=== PATIENT | male | born 1995 | race Caucasian/White ===

== ENCOUNTER 2019-06-12 23:45 | Emergency (ER) | payer MEDICARE, MEDICAID, SELFPAY ==
--- NOTE | 2019-06-13 00:02 | ED_ITS ---
Entered by Haven Jacobsen, acting as scribe for Tito Portillo MD HPI - Extremity Injury (Lower) General: Chief Complaint: Extremity Injury, Lower Stated Complaint: right leg pain Time Seen by Provider: 06/12/19 23:58 Source: patient and family Mode of arrival: ambulatory History of Present Illness: HPI Narrative: 23 y/o male presents to the ED with complaint of pain post fall. Pt was visiting family in [place] and fell down the stairs as he was leaving. Pt hit his right knee. Mom states he has Muscular Dystrophy. MD complaint: fall Onset (ago): minute(s) Injury: Right: knee Type of Injury: blunt Severity: mild Context: fall Review of Systems Const: Denies: fever, chills, body aches or change in appetite Eyes: Denies: blurry vision or eye discomfort ENMT: Denies: throat pain or dental pain Card: Denies: chest pain Resp: Denies: shortness of breath GI: Denies: abdominal pain, nausea, vomiting or diarrhea : Denies: painful urination Musc: Reports: extremity pain (right knee); Denies: neck pain or back pain Skin/Breast: Denies: rash Neuro: Denies: headache Psych: Denies: depression Yordan/Lymph: Denies: easy bruising All/Imm: Denies: hives PFSH ED PFSH: Social History Smoking and tobacco status: current every day smoker Physical Exam Const: COMMON NORMALS: no apparent distress, oriented x3 and healthy appearing GENERAL APPEARANCE: cooperative HENMT: COMMON NORMALS: normocephalic and head/scalp atraumatic HEAD & SCALP: normocephalic and atraumatic Eye: COMMON NORMALS: PERRL and EOMs intact bilaterally PUPIL: Yes PERRL Neck/C-Spine: COMMON NORMALS: full ROM and supple Chest: COMMONS NORMALS: inspection of chest normal and palpation of chest norm al Resp: COMMON NORMALS: normal respiratory effort, no retractions, no use of accessory muscles and clear to auscultation bilaterally AUSCULTATION: clear to auscultation bilaterally Cardio: COMMON NORMALS: regular rate, regular rhythm and no murmurs RATE: regular rate RHYTHM: regular rhythm GI: COMMON NORMALS: normal to inspection, nondistended, normoactive bowel sounds, soft to palpation, non-tender and no masses PALPATION: Yes soft Extremity: RIGHT LOWER EXTREMITY: Yes knee joint Right knee: Yes palpation (tenderness) Neuro: COMMON NORMALS: oriented x3 and no focal motor deficits Psych: COMMON NORMALS: mental status grossly normal, thought process normal and cooperative ATTITUDE: Yes calm THOUGHT PROCESS: normal thought process Skin: COMMON NORMALS: no rashes or lesions noted and no wounds GENERAL SKIN EXAM: no rashes or lesions noted Course Vital Signs: Vital signs: Vital Signs Temperature 97.5 F L 06/13/19 00:04 Pulse Rate 81 06/13/19 00:16 Respiratory Rate 18 06/13/19 00:04 Blood Pressure 154/92 06/13/19 00:04 Pulse Oximetry 96 06/13/19 00:04 MDM - Extremity Injury (Lower) MDM Narrative: Medical decision making narrative: Patient presents here with knee contusion from a fall. X-ray shows no fracture. Patient is stable for discharge and return if worsening. Imaging Data^: xr knee tib fib: Attestation: I personally reviewed and interpreted this imaging study as follows: My impression: no acute fx Discharge Plan Discharge Patient Disposition: Home, Self-Care Clinical Impression: Fall, Contusion of knee Condition: Stable Discharge Orders: Discharge Order (Routine); Ordered 06/13/19 Ordered By: Tito Portillo Referrals: Rafy Szymanski MD [Family Provider] - Tommy Frias Jr, MD [Primary Care Provider] - Discharge Diet: Advance as tolerated Discharge Activity: Resume usual activity Patient Instructions: Contusion in Adults (ED) Discharge Date/Time: 06/13/19 00:51 Coding Level of Care Code ED Airplane Patroller for Chg Fwd Exam Comprehensive The documentation recorded by the Delmar reyes Ashley, accurately reflects the service I personally performed and the decisions made by , Tito Portillo MD
[2019-06-13 00:04] VITALS: BP 154/92; PULSE 104; RESP 18; TEMP 36.4; O2SAT 96; BMI 30.7
--- NOTE | 2019-06-13 00:05 | XR_ITS ---
WS: [id number] XR tibia fibula RT 2V [id number] REASON FOR EXAM: injury FINDINGS: The tibia and fibula appear to be intact. There is no fractures or displacements noted. No unusual soft tissue masses or calcification. The knee and ankle appear to be essentially normal. XR/XR tibia fibula RT 2V [id number] IMPRESSION: Negative tibia fibula study
--- NOTE | 2019-06-13 00:05 | XR_ITS ---
WS: [id number] XR knee RT 3V* [id number] REASON FOR EXAM: injury FINDINGS: The meniscal spaces are normal. The patella tibial interspace normal. The patellofemoral articulations normal. There are no fractures or dislocations of the right knee. No definite unusual swelling. XR/XR knee RT 3V* [id number] IMPRESSION: Negative right knee.
[2019-06-13 00:16] VITALS: PULSE 81
[2019-06-13 00:50] VITALS: BP 132/72; PULSE 68; RESP 18; O2SAT 98
== END 2019-06-13 00:51 | disposition home or self-care (01) ==
PROVIDERS: Emergency Provider Emergency Medicine; Family Provider Family Medicine; PCP Pediatrics Adolescent Medicine
DX: S80.01XA Contusion of right knee, initial encounter (principal); G71.00 Muscular dystrophy, unspecified; W10.9XXA Fall (on) (from) unspecified stairs and steps, initial encounter; Y92.239 Unspecified place in hospital as the place of occurrence of the external cause; F17.200 Nicotine dependence, unspecified, uncomplicated
CPT/HCPCS: 73562; 73590; 99281; 99283

== ENCOUNTER 2022-10-25 19:22 | Emergency (ER) | payer MEDICARE, MEDICAID, SELFPAY ==
[2022-10-25 19:23] VITALS: BP 148/91; PULSE 116; RESP 18; TEMP 36.2; O2SAT 99; BMI 35.9
--- NOTE | 2022-10-25 19:26 | ECG_ITS ---
[facility] Test Date: 2022-10-25 Pat Name: Alexander Durán Department: Room: Gender: Male Events Manager: : 1995 Requested By: Jose Gonzalez Order Number: [id number] Anjel MD: Nia Tavares M.D. Measurements Intervals [place] Rate: 124 P: 55 AL: 168 QRS: 62 QRSD: 103 T: 36 QT: 302 QTc: 434 Interpretive Statements SINUS TACHYCARDIA Compared to ECG 11/13/2014 19:36:31 Sinus rhythm no longer present T-wave abnormality no longer present Electronically Signed On 10-26-2022 11:31:55 CDT by Nia Tavares M.D. [email or web address]/store/[id number] f
--- NOTE | 2022-10-25 19:30 | PC.NURSE ---
pt on bedside case monitor
--- NOTE | 2022-10-25 19:30 | XRR_ITS ---
PROCEDURE INFORMATION: Exam: XR Chest Exam date and time: 10/25/2022 7:37 PM Age: 27 years old Clinical indication: Pain; Chest pressure; Additional info: Chest pain TECHNIQUE: Imaging protocol: Radiologic exam of the chest. Views: 1 view. COMPARISON: No relevant prior studies available. FINDINGS: Lungs: Unremarkable. No consolidation. Pleural spaces: Unremarkable. No pleural effusion. No pneumothorax. Heart/Mediastinum: Unremarkable. No cardiomegaly. Bones/joints: Unremarkable. XR/XR chest 1V portable [id number] IMPRESSION: No acute findings.
--- NOTE | 2022-10-25 19:32 | ED_ITS ---
HPI - Chest Pain General: Chief Complaint: Chest Pain Stated Complaint: cp Time Seen by Provider: 10/25/22 19:26 History of Present Illness: Patient presents to the ER with chest pain. Started about 20 minutes ago. It is on both sides of the chest that is worse when he takes a big deep breath he is tachycardic he appears anxious he denies any diaphoresis nausea vomiting or cardiac history. Nothing makes his pain better but it does hurt when he takes a big deep breath. Patient was taking out the trash when his pain started he describes it as sharp and stabbing across both sides of his chest. He rates it severe patient has had this before several times recently. Review of Systems General: Reports: 10 or more systems reviewed and unremarkable except in HPI and below PFSH ED PFSH: Social History Smoking and tobacco status: current every day smoker Physical Exam Const: COMMON NORMALS: no acute distress, average body habitus, patient oriented x3, no limitations, healthy appearing, alert and well nourished HENMT: COMMON NORMALS: normocephalic, atraumatic, hearing grossly normal bilaterally, external ears normal, Normal external nose present and moist oral mucous membranes HEAD & SCALP: normocephalic and atraumatic NOSE: Normal external nose present EXTERNAL EAR: Yes external ears normal Eye: COMMON NORMALS: Equal, round and reactive pupils present, EOMs intact bilaterally, conjunctivae normal and no scleral icterus CONJUNCTIVA: Yes conjunctivae normal PUPIL: Yes Equal, round and reactive pupils present Neck/C-Spine: COMMON NORMALS: no JVD Chest: OTHER: Chest tender to palpation that reproduces patient's pain. Resp: COMMON NORMALS: normal respiratory effort, No retractions, No use of accessory muscles and clear to auscultation bilaterally AUSCULTATION: clear to auscultation bilaterally Cardio: COMMON NORMALS: no JVD, regular rate, regular rhythm, S1 normal heart sound present, S2 normal heart sound present, No gallops present (Cardio), No clicks present (Cardio), No murmurs present (Cardio) and No rub (Cardio) RATE: regular rate RHYTHM: regular rhythm HEART SOUNDS: S1 normal heart sound present and S2 normal heart sound present GI: COMMON NORMALS: Normal to inspection, nondistended, normoactive bowel sounds present, Soft to palpation, non-tender, No hepatosplenomegaly present and no masses PALPATION: Yes Soft to palpation and Yes No hepatosplenomegaly present : COMMON NORMALS: Yes no CVA tenderness BLADDER/KIDNEY EXAM: Yes no CVA tenderness Back/Pelvis: COMMON NORMALS: no CVA tenderness Neuro: COMMON NORMALS: patient oriented x3 SENSORIUM/ORIENTATION: Yes alert Course Vital Signs: Vital signs: Vital Signs Temperature 97.1 F L 10/25/22 19:23 Pulse Rate 76 10/25/22 22:00 Respiratory Rate 18 10/25/22 19: Blood Pressure 104/82 10/25/22 22:00 Pulse Oximetry 94 10/25/22 22:00 Oxygen Delivery Me thod Room Air 10/25/22 22:00 MDM - Chest Pain Medical Decision Making Patient presented to the ER with chest pain fall and hand pain. Patient was worked up with a normal fashion with also an x-ray of his hand. Work-up was unremarkable other than patient had elevated white count at 18.2 hemoglobin hematocrit of 17.4 and 50.7 and a BUN/creatinine 21 and 1.3. Is felt that this is noncardiac chest pain. Patient will be discharged home. Differential Diagnosis Unlikely acute massive pulmonary embolism, acute respiratory failure, acute myocardial infarction, cardiac arrest or sudden cardiac Medical Records I reviewed the patient's medical records. Lab Data I reviewed the patient's lab results. 10/25/22 19:37 10/25/22 19:37 Radiology Impressions Chest X-Ray 10/25/22 19:30 IMPRESSION: No acute findings. Hand X-Ray 10/25/22 21:34 IMPRESSION: Unremarkable radiographic appearance of the right hand. Laboratory Results WBC 18.2 10^3/uL (4.0-10.0) H 10/25/22 19:37 RBC 5.97 10^6/uL (4.1-5.3) H 10/25/22 19:37 Hgb 17.4 g/dL (11.7-16.6) H 10/25/22 19:37 Hct 50.7 % (42.0-52.0) 10/25/22 19:37 MCV 84.9 fl (80-94) 10/25/22 19:37 MCH 29.1 pg (28.0-34.0) 10/25/22 19:37 MCHC 34.3 g/dL (30.0-36.0) 10/25/22 19:37 RDW 12.7 % (12.1-15.1) 10/25/22 19:37 Plt Count 379 10^3/cmm (130-400) 10/25/22 19:37 MPV 11.0 fL (7.4-10.4) H 10/25/22 19:37 Lymph % (Auto) Not Reportable 10/25/22 19:37 [place] % (Auto) Not Reportable 10/25/22 19:37 Lymph # (Auto) Not Reportable 10/25/22 19:37 [place] # (Auto) Not Reportable 10/25/22 19:37 Total Counted 100 (0-100) 10/25/22 19:37 Atypical Lymphs % 1.0 % (0-5) 10/25/22 19:37 Absolute Neutrophils 9.3 10^3/cmm (1.4-6.5) H 10/25/22 19:37 Segmented Neutrophils 51 % 10/25/22 19:37 Abs Segm Neuts (Man) 9.3 10/cmm (1.6-7.1) H 10/25/22 19:37 Band Neutrophils 0.0 % 10/25/22 19:37 Abs Band Neuts (Man) 0.0 10^3/cmm (0.0-1.2) 10/25/22 19:37 Absolute Lymphocytes 7.1 10^3/cmm (1.2-3.4) H 10/25/22 19:37 Lymphocytes (Manual) 38 % 10/25/22 19:37 Monocytes (Manual) 10.0 % 10/25/22 19:37 Absolute Monocytes 1.8 10^3/cmm (0.1-0.6) H 10/25/22 19:37 Eosinophils (Manual) 0 % 10/25/22 19:37 Absolute Eosinophils 0.0 10^3/cmm (0.0-0.7) 10/25/22 19:37 Basophils (Manual) 0.0 % 10/25/22 19:37 Absolute Basophils 0.0 10^3/cmm (0.0-0.2) 10/25/22 19:37 Metamyelocytes 0.0 % 10/25/22 19:37 Myelocytes 0.0 % 10/25/22 19:37 Platelet Estimate Normal (Normal) 10/25/22 19:37 D-Dimer <= 0.27 ug/mIFEU (0-0.59) 10/25/22 19:37 Sodium 139 mmol/L (136-145) 10/25/22 19:37 Potassium 3.9 mmol/L (3.5-5.1) 10/25/22 19:37 Chloride 102 mmol/L (98-107) 10/25/22 19:37 Carbon Dioxide 16 mmol/L (22-29) L 10/25/22 19:37 Anion Gap 24.9 (5-19) H 10/25/22 19:37 BUN 21 mg/dL (6-20) H 10/25/22 19:37 Creatinine 1.3 mg/dL (0.7-1.2) H 10/25/22 19:37 GFR Calculation 67.3 mL/min (90-130) L 10/25/22 19:37 Glucose 104 mg/dL (65-115) 10/25/22 19:37 Calculated Osmolality 291 mOsm/kg (285-295) 10/25/22 19:37 Calcium 10.0 mg/dL (8.5-10.5) 10/25/22 19:37 Total Bilirubin 1.4 mg/dL (0.15-1.2) H 10/25/22 19:37 AST 65 U/L (0-40) H 10/25/22 19:37 ALT 101 U/L (0-41) H 10/25/22 19:37 Alkaline Phosphatase 129 U/L (40-130) 10/25/22 19:37 Troponin T Baseline 6 ng/L (0-15) 10/25/22 19:37 Troponin T 120 Minute 7.10 ng/L (0-15) 10/25/22 21:19 Delta Troponin T 1.1 ABS# (0-10) 10/25/22 21:19 Total Protein 7.7 g/dL (6.6-8.7) 10/25/22 19:37 Albumin 5.3 g/dL (3.5-5.2) H 10/25/22 19:37 Globulin 2.4 g/dL (1.3-4.6) 10/25/22 19:37 Urine Color Yellow (Yellow) 10/25/22 19:59 Urine Appearance Clear (CLEAR) 10/25/22 19:59 Urine pH 5 (5-7) 10/25/22 19:59 Ur Specific [place] 1.025 (1.005-1.030) 10/25/22 19:59 Urine Protein Neg (Negative) 10/25/22 19:59 Urine Glucose (UA) Norm (Normal) 10/25/22 19:59 Urine Ketones 1+ (Negative) H 10/25/22 19:59 Urine Blood Neg (Negative) 10/25/22 19:59 Urine Nitrate Negative (Negative) 10/25/22 19:59 Urine Bilirubin Neg (Negative) 10/25/22 19:59 Urine Urobilinogen 4 mg/dL (Negative) H 10/25/22 19:59 Ur Leukocyte Esterase Negative (Negative) 10/25/22 19:59 Urine Opiates Screen Negative ng/mL (Negative) 10/25/22 19:59 Ur Barbiturates Screen Negative ng/mL (Negative) 10/25/22 19:59 Ur Phencyclidine Scrn Negative ng/mL (Negative) 10/25/22 19:59 Ur Amphetamines Screen Negative ng/mL (Negative) 10/25/22 19:59 U Benzodiazepines Scrn Positive ng/mL (Negative) H 10/25/22 19:59 Urine Cocaine Screen Negative ng/mL (Negative) 10/25/22 19:59 U Marijuana (THC) Screen Positive ng/mL (Negative) H 10/25/22 19:59 EKG Data EKG 1: I personally reviewed and interpreted this EKG as follows: EKG interpretation date: 10/25/22 EKG interpretation time: 19:26 Prior EKG tracings: not available for review Interpretation: EKG shows ventricular rate 124 beats minute, WI interval 168, QRS duration 103, QTc 375, sinus tach, no ST-T wave changes EKG 2: I personally reviewed and interpreted this EKG as follows: EKG interpretation date: 10/25/22 EKG interpretation time: 21:32 Prior EKG tracings: available for review Interpretation: EKG showed ventricular rate 83 beats minute, WI interval 177, QRS duration 106, QTc of 391, normal sinus rhythm with no ST-T wave changes Discharge Plan Discharge Patient Disposition: Home Clinical Impression: Atypical chest pain, Hand pain, right Condition: Stable Discharge Orders: Discharge ED (Routine); Ordered 10/25/22 Ordered By: Jose Gonzalez Referrals: Rafy Szymanski MD [Physician] - 1 week Tommy Frias Jr, MD [Staff Physician] - Patient Instructions: Noncardiac Chest Pain (ED) Activity Restrictions/Additional Instructions: Your test results show your chest pain was not cardiac in nature. X-rays of your hand were preliminary read as negative. When the radiologist reads them if there is any difference you will be notified. Please follow-up with your primary care practitioner in the next 1 week as you may benefit from further evaluation testing. Coding Level of Care Code ED Telephone Surveyor for Satnam Richardson
[2022-10-25 19:43] LABS: Hematocrit 50.7 % (42.0-52.0); Hemoglobin 17.4 g/dL (11.7-16.6); Mean Corpuscular HGB Conc 34.3 g/dL (30.0-36.0); Mean Corpuscular Hemoglobin 29.1 pg (28.0-34.0); Mean Corpuscular Volume 84.9 fl (80-94); Platelet Count 379 10^3/cmm (130-400); Red Blood Count 5.97 10^6/uL (4.1-5.3); Red Cell Distribution Width 12.7 % (12.1-15.1); White Blood Count 18.2 10^3/uL (4.0-10.0)
[2022-10-25 19:47] LABS: Slide Review Slide Review Perform
[2022-10-25] MEDS: ketorolac 30 mg/mL INJ IVP (19:48)
[2022-10-25] MEDS: sodium chloride 0.9% 1,000 ML 999 ML IV (19:49)
--- NOTE | 2022-10-25 19:49 | PC.NURSE ---
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 Reports he has taken it before and it has helped his chest pain. Also smoked some marijuana two days ago.
[2022-10-25 19:56] LABS: D Dimer <= 0.27 ug/mIFEU (0-0.59)
[2022-10-25 20:00] VITALS: BP 135/85; PULSE 100; O2SAT 96
[2022-10-25 20:00] LABS: Alanine Aminotransferase 101 U/L (0-41); Albumin Level 5.3 g/dL (3.5-5.2); Alkaline Phosphatase 129 U/L (40-130); Anion Gap 24.9 (5-19); Aspartate Amino Transferase 65 U/L (0-40); Blood Urea Nitrogen 21 mg/dL (6-20); Carbon Dioxide 16 mmol/L (22-29); Chloride 102 mmol/L (98-107); Globulin 2.4 g/dL (1.3-4.6); Glomerular Filtration Rate 67.3 mL/min (90-130); Glucose 104 mg/dL (65-115); Osmolality Calculated 291 mOsm/kg (285-295); Potassium 3.9 mmol/L (3.5-5.1); Sodium 139 mmol/L (136-145); Total Bilirubin 1.4 mg/dL (0.15-1.2); Total Protein 7.7 g/dL (6.6-8.7); Troponin(5th) Baseline 6 ng/L (0-15)
[2022-10-25 20:06] LABS: Add Urine Microscopic? NO; Charge for UA Resulting for Rev
[2022-10-25 20:13] LABS: Bilirubin Urine Neg (Negative); Blood Urine Neg (Negative); Glucose Urine UA Norm (Normal); Ketones Urine 1+ (Negative); Leukocyte Esterase Urine Negative (Negative); Nitrate Urine Negative (Negative); Protein Urine Neg (Negative); Specific Gravity, Urine 1.025 (1.005-1.030); Urine Appearance Clear (CLEAR); Urine Color Yellow (Yellow); Urobilinogen Urine 4 mg/dL (Negative); pH Urine 5 (5-7)
[2022-10-25 20:20] LABS: Amphetamines Screen Urine Negative (Negative); Barbiturates Screen Urine Negative (Negative); Benzodiazepines Screen Urine Positive (Negative); Cocaine Screen Urine Negative (Negative); Opiate Screen Urine Negative (Negative); PCP Screen Urine Negative (Negative); THC Screen Urine Positive (Negative)
[2022-10-25 20:22] LABS: Absolute Neutrophil 9.3 10^3/cmm (1.4-6.5); Absolute Segmented Neutrophil 9.3 10/cmm (1.6-7.1); Eosinophils 0 %; Lymphocytes 38 %; Lymphocytes Absolute 7.1 10^3/cmm (1.2-3.4); Monocytes Absolute 1.8 10^3/cmm (0.1-0.6); Platelet Estimate Normal (Normal); Segmented Neutrophils 51 %; Total Cells Counted 100 (0-100)
[2022-10-25 20:30] VITALS: BP 142/94; PULSE 93; O2SAT 92
[2022-10-25 21:00] VITALS: BP 132/90; PULSE 88; O2SAT 93
[2022-10-25 21:30] VITALS: BP 131/86; PULSE 79; O2SAT 98
--- NOTE | 2022-10-25 21:32 | ECG_ITS ---
[facility] Test Date: 2022-10-25 Pat Name: Alexander Durán Department: Room: Gender: Male Youth Liaison Officer: : 1995 Requested By: oJse Gonzalez Order Number: [id number] Hobbs MD: Nia Tavares M.D. Measurements Intervals [place] Rate: 83 P: 38 SD: 177 QRS: 45 QRSD: 106 T: 21 QT: 351 QTc: 414 Interpretive Statements SINUS RHYTHM Compared to ECG 11/13/2014 19:36:31 T-wave abnormality no longer present Electronically Signed On 10-26-2022 11:32:30 CDT by Nia Tavares M.D. [id number]
--- NOTE | 2022-10-25 21:34 | XRR_ITS ---
PROCEDURE INFORMATION: Exam: XR Right Hand Exam date and time: 10/25/2022 9:38 PM Age: 27 years old Clinical indication: Pain; Hand; Right; Additional info: Hand pain TECHNIQUE: Imaging protocol: Radiologic exam of the right hand. Views: 3 or more views. COMPARISON: No relevant prior studies available. FINDINGS: Bones/joints: The alignment of the joints is anatomic and the joint spaces are maintained. There is no evidence of acute fracture. Soft tissues: No radiopaque foreign body is identified. XR/XR hand RT min 3V* [id number] IMPRESSION: Unremarkable radiographic appearance of the right hand.
[2022-10-25 22:00] VITALS: BP 104/82; PULSE 76; O2SAT 94
[2022-10-25 22:04] LABS: Troponin 5 2HR Delta 1.1 ABS# (0-10)
== END 2022-10-25 22:26 | disposition home or self-care (01) ==
PROVIDERS: Emergency Provider Emergency Medicine
DX: R07.89 Other chest pain (principal); M79.641 Pain in right hand
CPT/HCPCS: 36415; 71045; 73130; 80053; 80306; 81003; 84484; 85007; 85025; 85378; 93005; 96361; 96374; 99285; J1885; J7030

== ENCOUNTER → 2024-04-16 12:53 | Outpatient (BNVA) | payer MEDICARE, MEDICAID, SELFPAY | PROVIDERS: PCP Family Medicine; Visit Provider Podiatrist Foot & Ankle Surgery | DX: M79.671 Pain in right foot (principal); M79.672 Pain in left foot; G60.0 Hereditary motor and sensory neuropathy | CPT/HCPCS: 73630; 99203 ==

== ENCOUNTER 2024-11-16 19:29 | Inpatient (IN) | payer OTHER, MEDICAID, SELFPAY ==
--- OUTSIDE RECORDS SUMMARY | 2023-06-03 06:45 | XMS_ITS | Continuity of Care Document ---
Author Organization [facility] Address [id number] [address] Phone Care Team Providers Care Warehouse Loader Name Role Phone Glenn Butler DDS Unavailable Unavailable Allergies, Adverse Reactions, Alerts Substance Reaction Status Criticality No Known Allergies Active No Inform ation Medications Medication Instructions Dosage Effective Dates (start - stop) Status Comments omeprazole 40 mg capsule,delayed release take 1 capsule by oral route every day before a meal 40 MG - Active Procedures Procedure Date Resin-Based Composite Two Surfaces, Posterior Resin-Based Composite Three Surfaces, Posterior Resin-Based Composite One Surface, Anterior Extraction, Erupted Tooth Or Exposed Nyasia t (Elevati Resin-Based Composite One Surface, Posterior Resin-Based Composite Two Surfaces, Posterior Comprehensive Oral Evaluatio n New Or Established Caries Moderate Risk Exempt From Sealant Measure Bitewings Four Films Panoramic Film Intraoral Periapical First Film Intraoral Periapical Each Additional Film Intraoral Periapical Each Additional Film Intraoral Periapical Each Additional Film Extraction, Erupted Tooth Or Exposed Nyasia t (Elevati Intraoral Periapical First Film Intraoral Periapical Each Additional Film Limited Oral Evaluation Problem Focused Extraction, Erupted Tooth Or Exposed Nyasia t (Elevati Advance Directives Directive Yes / No Effective Date File Name No Information Encounters Encounter Description Practice Location Reason(s) For Visit Diagnoses Date Provider Providers Copied on Encounter [facility], [id number] [place], [id number], [place] tel:[phone] [facility] Encounter for dental exam and cleaning w/o abnormal findings Luke Elizabeth. [address] [place], [address], [place]. tel:[phone] Referring Provider: Glenn Saunders, [address] [place], [address]. tel:[phone] [facility], [id number], [id number], [place] tel:[phone] [facility] Encounter for dental exam and cleaning w/o abnormal findings Luke Elizabeth. [address] [place], [address], [place]. tel:[phone] Referring Provider: lGenn Saunders, [address] [place], [address]. tel:[phone] [facility], [id number], [id number], [place] tel:[phone] [facility] Encounter for dental exam and cleaning w/o abnormal findings Luke Elizabeth. [address] [place], [address], [place]. [phone] Referring Provider: Glenn Saunders, [address] [place], [address]. tel:[phone] [facility], [id number] [facility], [place], [place], [id number], [place] tel:[phone] [facility] No Information [facility]. [address] [place] [address], [address], [place]. tel:[phone] Referring Provider: Yoel Guillermo, [address] [place] [address], [address]. tel:[phone] Family History Family Member Type Diagnosis Age At Onset Father Problem (finding) Payers Payer name Insurance type Covered republican ID Authorwilber rader(s) D Medicaid [id number] Social History Type Description Quantity Date Captured Comments Alcohol Use Details Caffeine Use Details Unknown Tobacco Use Status Smoking Status No Information Sex Male Sexual Orientation Heterosexual Gender Identity Male Chief Complaint And Reason For Visit No Information Reason For Referral Reason For Referral No Information Plan Of Treatment Date Type Action Status Goal Tobacco cessation counseling completed History Of Present Illness Encounter Date Complaint History Of Prese nt Illness No Information Functional Status Date Functional Assessmen t No Information Instructions Date Instruction Additional Infor lucie Lifestyle education Related to D ental Examination Lifestyle education Related to D ental Examination Lifestyle education Related to D ental Examination Assessments Type Assessment Date No Information Patient Care Teams Name Effective Dates (start - stop) Status Members No Information
[2024-11-16 19:24] VITALS: BP 128/66; PULSE 83; RESP 18; TEMP 36.6; O2SAT 98; BMI 27.8
--- OUTSIDE RECORDS SUMMARY | 2024-11-16 19:39 | XMS_ITS | Encounter Summary ---
Author Organization [facility] Address [address] [place] [address] Care Team Providers Care Nuclear Spectroscopist Name Role Phone Unavailable Primary Care Provider Unavailabl e Encounter Details Date Type Department Care Team (Latest Contact Info) Description 05/28/2000 Outpatient Historical [facility] Th[facility] [address] [place] [address] Yefri Reich MD [address] 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
--- OUTSIDE RECORDS SUMMARY | 2024-11-16 19:39 | XMS_ITS | Clinical Summary ---
Author Organization [facility] Address [address] [facility] Attn: Epic Prelude ADT ANNITA ABRAHAM [address] Care Team Providers Care Account Strategist Name Role Phone Unavailable Primary Care Provider Unavailabl e Immunizations Immunization Administration Dates Next Due (M-M-R II/PRIORIX)(12 MO UP) MEASLES, MUMPS AND RUBELLA VIRUS VACCINE, 0.5 ML IM/SUBCUT 09/11/2002,08/24/1998 (VARIVAX)(12 MOS UP)VARICELL A VIRUS VACCINE (PF) 0.5 ML, SUB CUT 06/12/2000 Dt Dtp Dtap Vaccine 09/11/2002, 0,11/02/1998,1998,02/02/1998 HIB, Unspecified Formulation 05/31/1999, 11/02/1998,08/24/1998,1997 Hepatitis B Vaccine 08/24/1998,02/02/1998,1997 IPV/OPV 09/11/2002, 9,08/24/1998,1997 Social History Tobacco Use Types Packs/Day Years Used Date Smoking Tobacco: Never Assessed Sex and Gender Information Value Date Recorded Sex Assigned at Not on file Legal 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
--- OUTSIDE RECORDS SUMMARY | 2024-11-16 19:39 | XMS_ITS | Patient Health Record ---
Author Organization [facility] Address [address] [place] [address] Care Team Providers Care Drapery Examiner Name Role Phone LEO LOAIZA Primary Care Provider UnavailLeo Bello Unavailable [phone] Reason For Referral No Information Medications Medication SIG (Take, Route, Fr equency, Duration) Notes Start Date End Date Status Strattera 80 MG Capsule 1 capsule in the morning Orally Once a day; Duration: 30 day(s) 01/19/2016 Active Immunizations Vaccine Route Administration Date Status Comme nts Varicella (Varicella-Zoster/Chicken Pox) SC Subcutaneous 02/09/2016 Administered Social History Social History Additional Details Category Social Info Options Details zzMigrated Social History Migrated Social History Tobacco Use:(Tobacco Use/Smoking): Are you a: nonsmoker ; Section Notes: Lives with mom No smoke Student Lives with mom No smoke Student Lives with mom No smoke Student Lives with mom No smoke Student Problems Problem Type SNOMED Code ICD Code Onset Dates Problem Status W/U Status Risk Notes Problem Attention deficit hyperactivity disorder, combined type (82403297) Attention-deficit hyperactivity disorder, combined type (F90.2) Active confirmed Problem Behavioral and emotional disorder with onset in childhood (601980609) Unspecified behavioral and emotional disorders with onset usually occurring in childhood and adolescence (F98.9) Active confirmed Problem Insomnia, unspecified (G47.00) Active confirmed Plan Of Treatment No Information Medical (General) History Medical History History ICD Code ADHD DD Depression/Anxiety Autism
--- OUTSIDE RECORDS SUMMARY | 2024-11-16 19:39 | XMS_ITS | Encounter Summary ---
Author Organization [facility] Address [address] [place] [address] Care Team Providers Care Sensitized Paper Tester Name Role Phone Unavailable Primary Care Provider Unavailabl e Encounter Details Date Type Department Care Team (Late st Contact Info) Description 05/28/2000 Outpatient Historical [facility] ([facility]3] Ear, Nose and Throat [address] [place] [address] Social History Tobacco Use Types Packs/Day Years Used Date Smoking Tobacco: Never Assessed Sex and Gender Information Value Date Recorded Sex Assigned at Not on file Legal Sex Male 3:13 AM [employer] Gender Identity Not on file Sexual Orientation Not on file documented as of this encounter Plan of Treatment Not on file documented as of this encounter Visit Diagnoses Not on filedocumented in this encounter
--- NOTE | 2024-11-16 20:04 | ECG_ITS ---
[facility] Date: 2024-11-16 Pat Name: Alexander Durán Department: Room: Gender: Male [employer] Counter Clerk: : 1995 Requested By: Tito Portillo Order Number: [id number] Hobbs MD: Lázaro Dang M.D. Measurements Intervals [place] Rate: 69 P: 21 UT: 152 QRS: 39 QRSD: 97 T: 31 QT: 370 QTc: 398 Interpretive Statements SINUS RHYTHM Compared to ECG 10/25/2022 21:32:49 No significant changes Electronically Signed On 11-19-2024 09:05:45 CDT by Lázaro Dang M.D. [email or web address]
--- NOTE | 2024-11-16 20:05 | ED.C_ITS ---
HPI - Psych General: Chief Complaint: Psychiatric Symptoms Stated Complaint: hallucinations Time Seen by Provider: 11/16/24 19:29 Source: patient and EMS Mode of arrival: EMS Limitations: no limitations History of Present Illness: 29-year-old male states he been having i ncreased hallucinations. He states that he has been talking to his relatives has been hearing voices of all of his relatives. States he had felt today that he had his relatives in his room but that they were touching. He is been having extreme anxiety about this he did not take one of his mother's Xanax. He denies any SI or HI but does seem very paranoid Associated symptoms: Deny depression Related Data Previous Rx's ?Medication ?Instructions ?Recorded polyethylene glycol 3350 17 See Rx Instructions PO GABRIELLA LY #510 12/05/23 gram/dose oral powder (Miralax) grams tizanidine 4 mg capsule 4 mg PO BID PRN muscle cramp s #60 04/06/24 caps Bilateral AFO #1 ea 04/16/24 omeprazole 40 mg capsule,delayed 40 mg PO BID #180 cap s 07/24/24 release ondansetron HCl 4 mg tablet 4 mg PO Q8H nausea #90 tab s 07/24/24 Allergies Allergy/AdvReac Type Severity Reaction Status Date / Time No Known Allergies Allergy Verified 04/16/24 13:08 Review of Systems Const: Denies: fever(s), chills, body aches or change in appetite ENMT: Denies: throat pain or dental pain Card: Denies: chest pain Resp: Denies: dyspnea GI: Denies: abdominal pain, nausea, vomiting or diarrhea Musc: Denies: neck pain or back pain Skin/Breast: Denies: rash Neuro: Denies: headache(s) Psych: Reports: anxiety and difficulty concentrating; Denies: depression All/Imm: Denies: urticaria PFSH ED PFSH: Medical History Charcot Joanne Tooth muscular atrophy GERD (gastroesophageal reflux disease) Autism Complex posttraumatic stress disorder Selective mutism ADHD Surgical History History of appendectomy History of lithotripsy History of tonsillectomy and adenoidectomy Family History Grandfather Congestive heart failure (CHF) Melanoma Grandmother Blindness and low vision Father Congenital heart disease CAD (coronary artery disease) Mother Multiple sclerosis Social History Smoking and tobacco/nicotine status: current every day tobacco/nicotine user cigarettes Packs smoked per day: 1 Years cigarettes smoked: 10 Alcohol intake: never Substance/Drug Use: current Physical Exam Const: COMMON NORMALS: no acute distress, patient oriented x3 and healthy appearing HENMT: COMMON NORMALS: normocephalic and atraumatic HEAD & SCALP: normocephalic and atraumatic Eye: COMMON NORMALS: conjunctivae normal CONJUNCTIVA: Yes conjunctivae normal Neck/C-Spine: COMMON NORMALS: full ROM and supple Chest: COMMONS NORMALS: normal inspection of the chest Resp: COMMON NORMALS: normal respiratory effort Cardio: COMMON NORMALS: regular rate, regular rhythm and No murmurs present (Cardio) RATE: regular rate RHYTHM: regular rhythm Extremity: COMMON NORMALS: normal to inspection and full ROM Neuro: COMMON NORMALS: patient oriented x3, moves all extremities and no focal motor deficits Psych: COMMON NORMALS: mental status grossly normal and cooperative THOUGHT CONTENT: Yes Hallucination(s) present and Yes Derealization present Skin: COMMON NORMALS: no rashes or lesions noted and no wounds GENERAL SKIN EXAM: no rashes or lesions noted Course Vital Signs: Vital signs: Vital Signs Temperature 97.8 F 11/16/24 19:24 Pulse Rate 83 11/16/24 19:24 Respiratory Rate 18 11/16/24 19:24 Blood Pressure 128/66 11/16/24 19:24 Pulse Oximetry 98 11/16/24 19:24 Oxygen Delivery Me thod Room Air 11/16/24 19:24 MDM - Psych Medical Decision Making Patient presents here with acute psychosis he has been seeing people he is quite paranoid as well he is placed under 96-hour hold spoke to psychiatrist he is medically cleared will admit Medical Records I reviewed the patient's medical records. No radiology studies performed this visit Discharge Plan Discharge Patient Disposition: Admitted As Inpatient Clinical Impression: Acute psychosis Condition: Stable Coding Level of Care Code ED Mushroom Laborer for Satnam Richardson
[2024-11-16 21:07] LABS: Hematocrit 53.9 % (37-53); Hemoglobin 18.20 g/dL (11.27-16.99); Mean Corpuscular HGB Conc 33.8 g/dL (30-55); Mean Corpuscular Hemoglobin 28.7 pg (27-33); Mean Corpuscular Volume 85.0 fl (82-101); Nucleated Red Blood Cells % 0 %; Platelet Count 353 10^3/cmm (157-399); Red Blood Count 6.34 10^6/uL (3.85-5.65); White Blood Count 18.64 10^3/uL (3.29-11.43)
[2024-11-16 21:20] LABS: PCP Screen Urine Negative (Negative)
[2024-11-16 21:49] LABS: Alanine Aminotransferase 26 U/L (0-41); Albumin Level 5.1 g/dL (3.5-5.2); Alkaline Phosphatase 147 U/L (40-130); Anion Gap 21.1 (5-19); Aspartate Amino Transferase 19 U/L (0-40); Blood Urea Nitrogen 14 mg/dL (6-20); Calcium 10.2 mg/dL (8.5-10.5); Carbon Dioxide 23 mmol/L (22-29); Chloride 100 mmol/L (98-107); Creatinine Clr Calc Pharmacy 159.8228; Globulin 3.3 g/dL (1.3-4.6); Glucose 80 mg/dL (65-115); Osmolality Calculated 289 mOsm/kg (285-295); Potassium 4.1 mmol/L (3.5-5.1); Respiratory Syncytial Virus Ce NEGATIVE (Negative); SARS-CoV-2 PCR NEGATIVE (Negative); Sodium 140 mmol/L (136-145); Total Protein 8.4 g/dL (6.6-8.7)
[2024-11-16 22:01] LABS: Acetaminophen < 5.0 ug/mL (10-30); Alcohol Level < 10 mg/dL (0-10); Salicylate < 0.3 mg/dL (3-10)
--- NOTE | 2024-11-17 07:00 | PC.NURSE ---
ASSUMED CARE OF PT FROM ANDRES SWEENEY AT 0700. PT RESTING IN BED QUIETLY WITH EYES CLOSED AND EVEN AND NON-LABORED RESPIRATIONS. PSA OUTSIDE ROOM.
[2024-11-17 07:19] VITALS: RESP 16
[2024-11-17 09:06] VITALS: BP 127/87; PULSE 74; RESP 17; TEMP 36.3; O2SAT 96
--- NOTE | 2024-11-17 10:46 | PC.PHAR ---
Spoke to mom on the phone to verify pt medications. She states he should be taking Seroquel 200mg, Clonidine 0.1mg, Ritalin (unknown strength), and Pepto Bismol. Unable to establish any of these medications. She states pt has not had his medications on a regular basis since they moved from [place].
--- NOTE | 2024-11-17 12:00 | XRR_ITS ---
PROCEDURE INFORMATION: Exam: XR Chest Exam date and time: 11/17/2024 12:21 PM Age: 29 years old Clinical indication: Screening exam; Other screening; Additional info: Medical clearance TECHNIQUE: Imaging protocol: Radiologic exam of the chest. Views: 1 view. COMPARISON: CR XR chest 1V portable [id number] 10/25/2022 7:37 PM FINDINGS: Lungs: Lungs are clear. Pleural spaces: There is no pleural effusion or pneumothorax. Heart/Mediastinum: Cardiomediastinal contours are unremarkable. Bones/joints: Bones are unremarkable. XR/XR chest 1V portable [id number] IMPRESSION: No pathologic findings.
[2024-11-17 12:12] LABS: Glucose Urine UA Negative (Normal); Nitrate Urine Positive (Negative); Specific Gravity, Urine 1.022 (1.005-1.030)
[2024-11-17 12:14] LABS: Add Urine Microscopic? YES
--- NOTE | 2024-11-17 13:30 | PC.NURSE ---
PT MOTHER UPDATED ON PT TRANSFER STATUS.
[2024-11-17 14:29] VITALS: BP 126/74; PULSE 80; RESP 17; O2SAT 98
--- NOTE | 2024-11-17 14:30 | PC.NURSE ---
PT REPORT CALLED TO [facility].
--- NOTE | 2024-11-17 17:46 | PC.NURSE ---
PT GIVEN DINNER TRAY. PT DENIED ANY FURTHER VERBALIZED QUESTIONS OR CONCERNS AT THIS TIME.
[2024-11-17 18:11] VITALS: BP 128/82; PULSE 81; RESP 18; TEMP 36.8; O2SAT 95
--- NOTE | 2024-11-17 18:26 | PC.NURSE ---
PSA NOTIFIED THIS NURSE THAT PT WAS STARTING TO CRY AND WAS BECOMING ANXIOUS. PT WAS OFFERED PRN ANXIETY MEDICATION. PT ACCEPTED. PT VERBALIZED THAT HE WAS UPSET ABOUT BEING FAR AWAY FROM HIM MOM AND WOULD LIKE TO SPEAK WITH HER. EMS ARRIVED DURING THIS INTERACTION. THIS NURSE DIALED PT MOTHER'S PHONE NUMBER AND ALLOWED PT TO TALK TO MOTHER BEFORE HE LEFT WITH EMS.
[2024-11-17 18:28] VITALS: BP 128/82; PULSE 81; O2SAT 95
== END 2024-11-17 18:45 | DRG 885 ==
LOC: ER 21:23 → ER IP 22:09
PROVIDERS: Admitting Provider Psychiatry & Neurology Psychiatry; Emergency Provider Emergency Medicine; PCP Family Medicine; Visit Provider Psychiatry & Neurology Psychiatry
DX: F23 Brief psychotic disorder (principal); K21.9 Gastro-esophageal reflux disease without esophagitis; F84.0 Autistic disorder; G60.0 Hereditary motor and sensory neuropathy; F17.210 Nicotine dependence, cigarettes, uncomplicated; Z79.899 Other long term (current) drug therapy
CPT/HCPCS: 71045; 80053; 80306; 80307; 81001; 85025; 87637; 93005; 96372; 99285; J0696; J9999